=== PATIENT | male | born 1995 | race Caucasian/White ===

== ENCOUNTER → 2016-05-14 | Outpatient (REF) | payer BC | LOC: M LAB REF 12:03 | DX: J02.9 Acute pharyngitis, unspecified (principal) ==

== ENCOUNTER 2016-11-27 20:32 | Emergency (ER) | payer BC ==
[~2016-11-27] VITALS: Ht 180.3 cm; Wt 81.8 kg
[2016-11-27] MEDS ORDERED: NORCO, ANEXSIA 5/325MG TABLET (HYDROcodone/ACETAMINOPHEN) PO ONE (22:15)
[2016-11-27] MEDS ORDERED: LIDOCAINE 2% MDV 20 ML VIAL As Ordered ONE (23:01)
[2016-11-27] MEDS ORDERED: KEFL500C17 PO (23:11)
[2016-11-27] MEDS ORDERED: ceFAZolin 1GM INJ (J0690) IM ONE (23:15)
[2016-11-27] MEDS ORDERED: TETANUS/DIPHTHERIA TOX ADSORB ADULT 0.5ML SYR/VIAL (90714) IM ONE (23:30)
[2016-11-28] MEDS ORDERED: NORCO 5/325MG TABLET (BULK FOR ED) PO ONE
[2016-11-28 00:03] VITALS: BP 130/61
--- NOTE | 2016-11-28 07:41 | REP ---
LEFT HAND SERIES: Two views. HISTORY: Rule out retained foreign body. FINDINGS: AP and lateral views of the hand are compared with the earlier study. The metallic nail has been removed from the thenar soft tissues. No opaque foreign body is seen. No fracture is noted. Signed by Emiliano Garcia MD 11/28/2016 08:02 A
--- NOTE | 2016-11-28 07:59 | REP ---
LEFT HAND SERIES: Five views. HISTORY: Foreign body. FINDINGS: There is a metallic nail in the thenar soft tissues at the hand at the level of the 1st and 2nd USP joints. There is no visible fracture. No other foreign body seen. IMPRESSION: Metallic nail in the thenar soft tissues. No visible fracture. Signed by Emiliano Garcia MD 11/28/2016 08:02 A
== END 2016-11-28 00:24 | disposition home or self-care (01) ==
LOC: M ED 20:32
DX: S61.442A Puncture wound with foreign body of left hand, initial encounter (principal); W45.0XXA Nail entering through skin, initial encounter; Y92.018 Other place in single-family (private) house as the place of occurrence of the external cause; Y93.89 Activity, other specified; Y99.8 Other external cause status
CPT/HCPCS: 73120; 73130; 90471; 90714; 96372; 99283; J0690

== ENCOUNTER 2017-12-27 05:36 | Emergency (ER) | payer BC, SELFPAY ==
[2017-12-27] MEDS: NORCO, ANEXSIA 5/325MG TABLET (HYDROcodone/ACETAMINOPHEN) PO (06:15)
[2017-12-27] MEDS: AMOXICILLIN 500 MG CAP PO (06:15)
== END 2017-12-27 06:27 | disposition home or self-care (01) ==
LOC: M ED 05:36
DX: K04.7 Periapical abscess without sinus (principal); K08.89 Other specified disorders of teeth and supporting structures; Z72.0 Tobacco use
CPT/HCPCS: 99282

== ENCOUNTER 2017-12-28 08:02 | Inpatient (IN) | payer BC ==
[2017-12-28] MEDS: NS 1,000 ML IV ×3 (08:30→14:48)
[2017-12-28] MEDS: MORPHINE 4 MG/ML 1ML VIAL/SYRINGE (J2270) IV (08:40)
[2017-12-28] MEDS: CLINDAMYCIN 900 MG in APPROPRIATE DILUENT 1 EA IV (08:41)
[2017-12-28 08:43] LABS: BASO % 0.2 % (0.0-1.0); EOS % 0.1 % (0.0-3.0); HEMATOCRIT 43.8 % (42.0-52.0); HEMOGLOBIN 14.3 g/dl (13.5-17.5); IMMATURE GRANULOCYTE % 0.1 % (0-3.0); LYMPH # 1.2 10^3/uL (1.5-6.5); LYMPH % 15.1 % (24.0-44.0); MEAN CORPUSCULAR HGB CONC 32.6 g/dl (32.0-36.5); MEAN CORPUSCULAR VOLUME 85.9 fl (80.0-96.0); MONO # 0.6 10^3/uL (0.0-0.8); MONO % 7.7 % (0.0-5.0); NEUTROPHILS # 6.3 10^3/uL (1.8-7.7); NEUTROPHILS % 76.8 % (36.0-66.0); PLATELET COUNT, AUTOMATED 222 10^3/uL (150-450); RED CELL DISTRIBUTION WIDTH 12.3 % (11.5-14.5); WHITE BLOOD COUNT 8.2 10^3/uL (4.0-10.0)
[2017-12-28 08:57] LABS: ANION GAP 9 MEQ/L (8-16); BLOOD UREA NITROGEN 10 MG/DL (7-18); C REACTIVE PROTEIN QUANTITATIV 3.86 MG/DL (0.00-0.30); CALCIUM LEVEL 9.1 MG/DL (8.5-10.1); CARBON DIOXIDE LEVEL 28 MEQ/L (21-32); CHLORIDE LEVEL 101 MEQ/L (98-107); CREATININE FOR GFR 0.96 MG/DL (0.70-1.30); GLOMERULAR FILTRATION RATE > 60.0 (>60); GLUCOSE, FASTING 114 MG/DL (70-100); POTASSIUM SERUM 3.8 MEQ/L (3.5-5.1); SODIUM LEVEL 138 MEQ/L (136-145)
[2017-12-28 09:01] LABS: LACTIC ACID SEPSIS PROTOCOL 1.3 MMOL/L (0.4-2.0)
[2017-12-28] MEDS ORDERED: ISOVUE-370 76% 100ML VIAL (Q9967) As Ordered (09:04)
[2017-12-28] MEDS: KETOROLAC 30 MG/ML VIAL (J1885) IV (10:33)
[2017-12-28] MEDS ORDERED: MORPHINE 4 MG/ML 1ML VIAL/SYRINGE (J2270) IV (11:45)
[2017-12-28] MEDS: LIDOCAINE 2% W/ EPINEPHRINE 1.7 ML DENTAL INJ As Ordered (12:10)
[2017-12-28] MEDS: AMPICILLIN SOD/SULBACTAM SOD 3 GM in D5W MINI-BAG PLUS 100 ML IV ×2 (12:37→18:18)
[2017-12-28] MEDS: LIDOCAINE W/EPINEPHRINE 1% 20ML VIAL As Ordered (13:37)
[2017-12-28] MEDS ORDERED: fentaNYL 100 MCG/2 ML INJECTION (J3010) As Ordered (13:43)
[2017-12-28] MEDS ORDERED: dexameTHASONE 4 MG/ML 1ML VIAL (J1100) As Ordered (13:43)
[2017-12-28] MEDS ORDERED: ONDANSETRON 4MG/2ML VIAL (J2405) As Ordered (13:43)
[2017-12-28] MEDS ORDERED: GLYCOPYRROLATE INJ 0.2 MG/ML 2 ML VIAL As Ordered (13:43)
[2017-12-28] MEDS ORDERED: ROCURONIUM BROMIDE 50 MG/5 ML VIAL As Ordered (13:43)
[2017-12-28] MEDS ORDERED: LIDOCAINE 2% INJ 100 MG/5 ML SDV (FOR ANES.) As Ordered (13:43)
[2017-12-28] MEDS ORDERED: NEOSTIGMINE 10 MG/10 ML VIAL (J2710) As Ordered (13:43)
[2017-12-28] MEDS ORDERED: MIDAZOLAM INJ 2 MG/2 ML VIAL (J2250) As Ordered (13:43)
[2017-12-28] MEDS ORDERED: fentaNYL 100 MCG/2 ML INJECTION (J3010) IV (14:30)
[2017-12-28] MEDS ORDERED: ONDANSETRON 4MG/2ML VIAL (J2405) IV (14:30)
[2017-12-28] MEDS ORDERED: KETOROLAC 30 MG/ML VIAL (J1885) IV (14:30)
[2017-12-28] MEDS: ACETAMINOPHEN TAB 650MG DOSE (2X325MG) PO (20:27)
[2017-12-29] MEDS: NS 1,000 ML IV ×2 (00:38→10:38)
[2017-12-29] MEDS: AMPICILLIN SOD/SULBACTAM SOD 3 GM in D5W MINI-BAG PLUS 100 ML IV ×3 (00:38→14:51)
[2017-12-29] MEDS: ACETAMINOPHEN TAB 650MG DOSE (2X325MG) PO ×2 (02:43→14:53)
[2017-12-29] MEDS: LR 1,000 ML IV (07:29)
[2017-12-29 07:36] LABS: BASO % 0.2 % (0.0-1.0); EOS % 0.1 % (0.0-3.0); HEMATOCRIT 38.2 % (42.0-52.0); HEMOGLOBIN 12.7 g/dl (13.5-17.5); IMMATURE GRANULOCYTE % 0.4 % (0-3.0); LYMPH % 20.8 % (24.0-44.0); MEAN CORPUSCULAR HEMOGLOBIN 28.3 pg (27.0-33.0); MEAN CORPUSCULAR HGB CONC 33.2 g/dl (32.0-36.5); MEAN CORPUSCULAR VOLUME 85.3 fl (80.0-96.0); MONO # 0.9 10^3/uL (0.0-0.8); MONO % 9.7 % (0.0-5.0); NEUTROPHILS # 6.6 10^3/uL (1.8-7.7); NEUTROPHILS % 68.8 % (36.0-66.0); PLATELET COUNT, AUTOMATED 223 10^3/uL (150-450); RED BLOOD COUNT 4.48 10^6/uL (4.30-6.10); RED CELL DISTRIBUTION WIDTH 12.4 % (11.5-14.5); WHITE BLOOD COUNT 9.6 10^3/uL (4.0-10.0)
[2017-12-29 08:02] LABS: ANION GAP 9 MEQ/L (8-16); BLOOD UREA NITROGEN 6 MG/DL (7-18); C REACTIVE PROTEIN QUANTITATIV 3.49 MG/DL (0.00-0.30); CARBON DIOXIDE LEVEL 25 MEQ/L (21-32); CHLORIDE LEVEL 105 MEQ/L (98-107); CREATININE FOR GFR 0.67 MG/DL (0.70-1.30); GLOMERULAR FILTRATION RATE > 60.0 (>60); GLUCOSE, FASTING 113 MG/DL (70-100); POTASSIUM SERUM 3.8 MEQ/L (3.5-5.1); SODIUM LEVEL 139 MEQ/L (136-145)
[2017-12-29] MEDS: INFLUENZA QUADRIVALENT PF VACCINE 0.5ML SYRINGE (90686) IM (14:53)
== END 2017-12-29 15:15 | disposition home or self-care (01) | DRG 98 ==
LOC: M ED 08:02 → M ED INP 11:40 → M PED 14:40
PROC: 0CDXXZ0 Extraction of Lower Tooth, Single, External Approach (ICD-10-PCS; principal; 2017-12-28 11:51)
PROC: 0J9100Z Drainage of Face Subcutaneous Tissue and Fascia with Drainage Device, Open Approach (ICD-10-PCS; 2017-12-28 11:51)
DX: K04.7 Periapical abscess without sinus (principal); L03.211 Cellulitis of face; G40.909 Epilepsy, unspecified, not intractable, without status epilepticus; F17.210 Nicotine dependence, cigarettes, uncomplicated

== ENCOUNTER 2018-12-03 12:54 | Emergency (ER) | payer OTHER, BC ==
[~2018-12-03] VITALS: Ht 180.3 cm; Wt 75.0 kg
[~2018-12-03 12:54] MED LIST: AMOX500C PO; AMOX875T2 PO; HYDR-3715 PO; IBUP80TA PO; KEFL500C17 PO; NORC1TAB7 PO
[2018-12-03] MEDS ORDERED: PARO5TAB (12:59)
--- NOTE | 2018-12-03 13:52 | REP ---
RIGHT HAND SERIES: Four views. HISTORY: Puncture wound. FINDINGS: Four views right hand are obtained. A metallic BB is placed over the puncture site along the dorsal and ulnar aspect of the middle phalanx of the middle finger. There is soft tissue swelling here especially dorsally. No opaque foreign body is appreciated. No soft tissue gas is seen. No fracture is noted. IMPRESSION: Soft-tissue swelling at the PIP joint of the long finger. No opaque foreign body or fracture seen. Electronically Signed by Emiliano Garcia MD 12/03/2018 04:41 P
[2018-12-03 15:07] VITALS: BP 136/74
== END 2018-12-03 15:11 | disposition home or self-care (01) ==
LOC: M ED 12:54
DX: S61.232A Puncture wound without foreign body of right middle finger without damage to nail, initial encounter (principal); W45.0XXA Nail entering through skin, initial encounter; Y92.099 Unspecified place in other non-institutional residence as the place of occurrence of the external cause; Y93.9 Activity, unspecified; Y99.9 Unspecified external cause status; Z72.0 Tobacco use; Z79.899 Other long term (current) drug therapy

== ENCOUNTER → 2020-05-31 | Outpatient (REF) | payer OTHER, BC ==
[~2020-05-31] MED LIST changes: +PARO5TAB
[2020-05-31 20:20] LABS: CHLAMYDIA DNA AMPLIFICATION NEGATIVE (NEGATIVE); GC DNA AMPLIFICATION NEGATIVE (NEGATIVE)
== END ==
LOC: M LAB REF 17:27
PROVIDERS: ATTEND Physician Assistant
DX: R30.0 Dysuria (principal)